=== PATIENT | female | born 1990 | race African-American/Black ===

== ENCOUNTER 2016-10-21 15:47 | Inpatient (IN) | payer OTHER ==
[~2016-10-21] VITALS: Ht 175.3 cm; Wt 109.4 kg
[2016-10-21 15:47] VITALS: BP 162/90; PULSE 88; RESP 18; TEMP 98.7; O2SAT 100
[~2016-10-21 15:47] MED LIST: AMOX875 PO; MMW SS; PRED20 PO
[2016-10-21 15:50] VITALS: BP 162/90; PULSE 94; RESP 18; O2SAT 100
--- NOTE | 2016-10-21 16:05 | PD ---
HPI . possible seizure earlier today Chief Complaint: Seizure Time Seen by Provider: 16:05 Travel History International Travel<30 days: No Contact w/Intl Traveler<30days: No Traveled to known affect area: No History of Present Illness HPI 26-year-old female with history of sickle cell trait, chronically muffled voice and hypertension no longer taking medications due to weight loss and diet control here after having a seizure while at work. Patient says she was working and all of a sudden started to gaze off into space, after that she does not recall any events other than leaning forward on the [employer] register. Her coworkers told her that she lost consciousness and was placed on the floor for about 5 minutes. Per EMS coworkers report convulsions. Patient says she then woke up and decided that she really had to use the bathroom and ran there. Apparently there was some confusion and fire rescue felt as though the patient was hiding in the bathroom. She tells me that she does not have a seizure disorder. She does have bite irby on her tongue. She denies any loss of bowel or bladder functions. She has no specific complaints. She denies any weakness or pain. She denies any nausea, chest pain, fever, chills, abdominal pain, diarrhea or headache. Her entire family is at bedside. They confirm that her voice is muffled as usual. Her significant other is also at bedside and reports that her girlfriend is back to her normal state. PFSH Past Medical History Diminished Hearing: No Hypertension: Yes (PT STATES SHE WAS PREVIOUSLY ON MEDICATION, BUT WAS TOLD TO STOP) Tetanus Vaccination: < 5 Years Influenza Vaccination: Yes ?: Not LMP: 10/19/16 : 0 Para: 0 Miscarriage: 0 : 0 Past Surgical History Surgical History: No Previous Surgery Social History Alcohol Use: Yes (RARELY) Tobacco Use: No Substance Use: Yes (OCCASIONAL MARIJUANA ) Allergies-Medications (Allergen,Severity, Reaction): Coded Allergies: No Known Allergies (Verified , 10/21/16) Reported Meds & Prescriptions Reported Meds & Active Scripts Active Review of Systems General / Constitutional: No: Fever Eyes: No: Visual changes HENT: No: Headaches Cardiovascular: No: Chest Pain or Discomfort Respiratory: No: Shortness of Breath Gastrointestinal: No: Abdominal Pain Genitourinary: No: Dysuria Musculoskeletal: No: Pain Skin: No Rash Neurologic: No: Weakness Psychiatric: No: Depression Endocrine: No: Polydipsia Hematologic/Lymphatic: No: Easy Bruising Physical Exam Narrative GENERAL: AAO x 3, no acute distress, Well-nourished, well-developed patient. SKIN: Warm and dry. No visible rashes or bruising. HEAD: Normocephalic and atraumatic. EYES: No scleral icterus. No injection or drainage. EOM intact, PERRLA ENT: No nasal drainage noted. Mucous membranes pink. Airway patent. ++ bite irby on left side of tongue. NECK: Supple, trachea midline. No JVD. CARDIOVASCULAR: Regular rate and rhythm without murmurs, gallops, or rubs. RESPIRATORY: Breath sounds equal bilaterally. No accessory muscle use. No rhonchi or rales. GASTROINTESTINAL: Abdomen soft, non-tender, nondistended. EXTREMITIES: No cyanosis or edema. BACK: Nontender without obvious deformity. No CVA tenderness. PSYCH: AAO x 3, normal affect. Data Data Last Documented VS Vital Signs Date Time Temp Pulse Resp B/P Pulse Ox O2 Delivery O2 Flow Rate FiO2 10/21/16 15:50 94 18 162/90 100 Room Air 10/21/16 15:47 98.7 Orders Complete Blood Count With Diff (10/21/16 16:15) Drug Screen, Random Urine (10/21/16 16:15) Electrocardiogram (10/21/16 ) Ct Brain W/O Iv Contrast(Rout) (10/21/16 ) Blood Glucose (10/21/16 16:15) Ecg Monitoring (10/21/16 16:15) Iv Access Insert/Monitor (10/21/16 16:15) Oximetry (10/21/16 16:15) Comprehensive Metabolic Panel (10/21/16 16:15) Sodium Chloride 0.9% Flush (Ns Flush) (10/21/16 16:15) Urinalysis - C+S If Indicated (10/21/16 16:15) Ed Urine Pregnancytest Poc (10/21/16 16:31) Levetiracetam 1000 Mg Inj (Keppra 1000 M (10/21/16 17:45) Levetiracetam (Keppra) (10/21/16 21:00) Mri Brain W&W/O Contrast (10/21/16 ) Consult Neurology (10/21/16 ) Labs Laboratory Tests Test 10/21/16 16:40 White Blood Count 5.3 TH/MM3 Red Blood Count 4.18 MIL/MM3 Hemoglobin 11.8 GM/DL Hematocrit 34.5 % Mean Corpuscular Volume 82.4 FL Mean Corpuscular Hemoglobin 28.1 PG Mean Corpuscular Hemoglobin 34.1 % Concent Red Cell Distribution Width 13.6 % Platelet Count 289 TH/MM3 Mean Platelet Volume 8.5 FL Neutrophils (%) (Auto) 64.9 % Lymphocytes (%) (Auto) 25.5 % Monocytes (%) (Auto) 7.8 % Eosinophils (%) (Auto) 1.3 % Basophils (%) (Auto) 0.5 % Neutrophils # (Auto) 3.5 TH/MM3 Lymphocytes # (Auto) 1.4 TH/MM3 Monocytes # (Auto) 0.4 TH/MM3 Eosinophils # (Auto) 0.1 TH/MM3 Basophils # (Auto) 0.0 TH/MM3 CBC Comment DIFF FINAL Differential Comment Urine Color LIGHT-YELLOW Urine Turbidity CLEAR Urine pH 6.0 Urine Specific [place] 1.009 Urine Protein NEG mg/dL Urine Glucose (UA) NEG mg/dL Urine Ketones NEG mg/dL Urine Occult Blood NEG Urine Nitrite NEG Urine Bilirubin NEG Urine Urobilinogen LESS THAN 2.0 MG/DL Urine Leukocyte Esterase NEG Urine RBC LESS THAN 1 /hpf Urine WBC LESS THAN 1 /hpf Urine Squamous Epithelial <1 /hpf Cells Microscopic Urinalysis Comment CULT NOT INDICATED Sodium Level 141 MEQ/L Potassium Level 3.5 MEQ/L Chloride Level 108 MEQ/L Carbon Dioxide Level 25.5 MEQ/L Anion Gap 8 MEQ/L Blood Urea Nitrogen 10 MG/DL Creatinine 1.05 MG/DL Estimat Glomerular Filtration 77 ML/MIN Rate Random Glucose 66 MG/DL Calcium Level 8.8 MG/DL Total Bilirubin 0.2 MG/DL Aspartate Amino Transf 14 U/L (AST/SGOT) Alanine Aminotransferase 20 U/L (ALT/SGPT) Alkaline Phosphatase 72 U/L Total Protein 7.8 GM/DL Albumin 4.1 GM/DL Urine Opiates Screen NEG Urine Barbiturates Screen NEG Urine Amphetamines Screen NEG Urine Benzodiazepines Screen NEG Urine Cocaine Screen NEG Urine Cannabinoids Screen POS MDM Medical Decision Making Medical Screen Exam Complete: Yes Emergency Medical Condition: Yes Medical Record Reviewed: Yes Differential Diagnosis new onset seizures, syncope, less likely brain lesion Narrative Course 26-year-old female with history of sickle cell trait, chronically muffled voice and hypertension no longer taking medications due to weight loss and diet control here after having a seizure while at work. Patient says she was working and all of a sudden started to gaze off into space, after that she does not recall any events other than leaning forward on the [employer] register. Her coworkers told her that she lost consciousness and was placed on the floor for about 5 minutes. Per EMS coworkers report convulsions. Patient says she then woke up and decided that she really had to use the bathroom and ran there. Apparently there was some confusion and fire rescue felt as though the patient was hiding in the bathroom. She tells me that she does not have a seizure disorder. She does have bite irby on her tongue. She denies any loss of bowel or bladder functions. She has no specific complaints. She denies any weakness or pain. She denies any nausea, chest pain, fever, chills, abdominal pain, diarrhea or headache. Her entire family is at bedside. They confirm that her voice is muffled as usual. Her significant other is also at bedside and reports that her girlfriend is back to her normal state. Patient seen and examined. Case discussed with Dr. Means. Labs, EKG, UA, tox screen and CT scan of the brain ordered. We'll consult neurology. Hypoglycemia: patient given juice and crackers Laboratory Tests Test 10/21/16 16:40 White Blood Count 5.3 TH/MM3 Red Blood Count 4.18 MIL/MM3 Hemoglobin 11.8 GM/DL Hematocrit 34.5 % Mean Corpuscular Volume 82.4 FL Mean Corpuscular Hemoglobin 28.1 PG Mean Corpuscular Hemoglobin 34.1 % Concent Red Cell Distribution Width 13.6 % Platelet Count 289 TH/MM3 Mean Platelet Volume 8.5 FL Neutrophils (%) (Auto) 64.9 % Lymphocytes (%) (Auto) 25.5 % Monocytes (%) (Auto) 7.8 % Eosinophils (%) (Auto) 1.3 % Basophils (%) (Auto) 0.5 % Neutrophils # (Auto) 3.5 TH/MM3 Lymphocytes # (Auto) 1.4 TH/MM3 Monocytes # (Auto) 0.4 TH/MM3 Eosinophils # (Auto) 0.1 TH/MM3 Basophils # (Auto) 0.0 TH/MM3 CBC Comment DIFF FINAL Differential Comment Urine Color LIGHT-YELLOW Urine Turbidity CLEAR Urine pH 6.0 Urine Specific [place] 1.009 Urine Protein NEG mg/dL Urine Glucose (UA) NEG mg/dL Urine Ketones NEG mg/dL Urine Occult Blood NEG Urine Nitrite NEG Urine Bilirubin NEG Urine Urobilinogen LESS THAN 2.0 MG/DL Urine Leukocyte Esterase NEG Urine RBC LESS THAN 1 /hpf Urine WBC LESS THAN 1 /hpf Urine Squamous Epithelial <1 /hpf Cells Microscopic Urinalysis Comment CULT NOT INDICATED Sodium Level 141 MEQ/L Potassium Level 3.5 MEQ/L Chloride Level 108 MEQ/L Carbon Dioxide Level 25.5 MEQ/L Anion Gap 8 MEQ/L Blood Urea Nitrogen 10 MG/DL Creatinine 1.05 MG/DL Estimat Glomerular Filtration 77 ML/MIN Rate Random Glucose 66 MG/DL Calcium Level 8.8 MG/DL Total Bilirubin 0.2 MG/DL Aspartate Amino Transf 14 U/L (AST/SGOT) Alanine Aminotransferase 20 U/L (ALT/SGPT) Alkaline Phosphatase 72 U/L Total Protein 7.8 GM/DL Albumin 4.1 GM/DL Urine Opiates Screen NEG Urine Barbiturates Screen NEG Urine Amphetamines Screen NEG Urine Benzodiazepines Screen NEG Urine Cocaine Screen NEG Urine Cannabinoids Screen POS CT brain negative. Discussed with Neurology: recommend Keppra 1000mg iv and then keppra 1000mg BID , also requested Brain MRI and EEG Discussed with patient that we will be keeping her overnight and having her see neurology. ? NEW ONSET SEIZURE VS. SYNCOPE She was understanding and in agreement. Discussed with Dr. Purcell: patient will be admitted for observation. Patient verbalized understanding of instructions, questions were answered, and thanked me for their care. I advised them if their condition worsens, please return to the nearest emergency room for further care. Diagnosis Primary Impression: New onset seizure Admitting Information Admitting Physician Requests: Admit Scripts No Active Prescriptions or Reported Meds Condition: Stable Torie Murphy Oct 21, 2016 16:05
[2016-10-21] MEDS ORDERED: SODIUM CHLORIDE 0.9% FLUSH 5 ML FLUSH IVF PRN ×2 (16:15→18:00)
[2016-10-21 16:52] LABS: BLOOD, URINE NEG (NEG); GLUCOSE,URINE NEG (NEG); KETONE, URINE NEG (NEG); NITRITE,URINE NEG (NEG); SQUAMOUS EPITHELIAL CELL URINE <1 /hpf (0-5); URINE COLOR LIGHT-YELLOW (YELLW/STRAW)
[2016-10-21 16:53] LABS: AUTOMATED NEUTROPHIL # 3.5 TH/MM3 (1.8-7.7); BASOPHIL % 0.5 % (0.0-2.0); EOSINOPHIL # 0.1 TH/MM3 (0-0.4); EOSINOPHIL % 1.3 % (0.0-4.0); HEMATOCRIT 34.5 % (35.0-46.0); HEMO FLAGS DIFF FINAL; LYMPH % 25.5 % (9.0-44.0); LYMPHOCYTE # 1.4 TH/MM3 (1.0-4.8); MEAN CELL VOLUME 82.4 FL (80.0-100.0); MEAN CORPUSCULAR HEMOGLOBIN 28.1 PG (27.0-34.0); MEAN CORPUSCULAR HGB CONC 34.1 % (32.0-36.0); MONO % 7.8 % (0.0-8.0); NEUT % 64.9 % (16.0-70.0); PLATELET COUNT 289 TH/MM3 (150-450); RED BLOOD COUNT 4.18 MIL/MM3 (4.00-5.30); RED CELL DISTRIBUTION WIDTH 13.6 % (11.6-17.2); WHITE BLOOD COUNT 5.3 TH/MM3 (4.0-11.0)
[2016-10-21 16:55] LABS: COMMENT (UR) CULT NOT INDICATED; CULTURE IF INDICATED CULT NOT INDICATED
[2016-10-21 16:59] LABS: AMPHETAMINE, URINE NEG (NEG); BARBITURATES, URINE NEG (NEG); COCAINE, URINE NEG (NEG)
[2016-10-21 17:21] LABS: ALT (GPT) 20 U/L (10-53); ANION GAP 8 MEQ/L (5-15); AST (GOT) 14 U/L (15-37); BICARBONATE 25.5 MEQ/L (21.0-32.0); BLOOD UREA NITROGEN 10 MG/DL (7-18); CHLORIDE 108 MEQ/L (98-107); GLOMERULAR FILTRATION RATE 77 ML/MIN (>89); POTASSIUM 3.5 MEQ/L (3.5-5.1); SODIUM (NA) 141 MEQ/L (136-145)
[2016-10-21 17:24] LABS: ALKALINE PHOSPHATASE 72 U/L (45-117); TOTAL BILIRUBIN ADULT 0.2 MG/DL (0.2-1.0)
--- NOTE | 2016-10-21 17:29 | RADRPT ---
EXAM DATE/TIME: 10/21/2016 17:11 [facility] COMPARISON: No previous studies available for comparison. INDICATIONS : Syncope. RADIATION DOSE: 40.33 CTDIvol (mGy) MEDICAL HISTORY : Hypertension. SURGICAL HISTORY : None. ENCOUNTER: Initial ACUITY: 1 day PAIN SCALE: 0/10 LOCATION: cranial TECHNIQUE: Multiple contiguous axial images were obtained of the head. Using automated exposure control and adjustment of the mA and/or kV according to patient size, radiation dose was kept as low as reasonably achievable to obtain optimal diagnostic quality images. FINDINGS: CEREBRUM: The ventricles are normal for age. No evidence of midline shift, mass lesion, hemorrha ge or acute infarction. No extra-axial fluid collections are seen. POSTERIOR FOSSA: The cerebellum and brainstem are intact. The 4th ventricle is midline. The cer ebellopontine angle is unremarkable. EXTRACRANIAL: The visualized portion of the orbits is intact. SKULL: The calvaria is intact. No evidence of skull fracture. CONCLUSION: Negative for an acute process. Brian Michelle MD FACR on October 21, 2016 at 17:26 Board Certified Radiologist. This report was verified electronically.
[2016-10-21] MEDS ORDERED: levETIRAcetam 1000 MG INJ 100 ML IV ONE (17:45)
[2016-10-21] MEDS ORDERED: SODIUM CHLOR 0.9% 1000 ML INJ 1,000 ML IV SCH (18:00)
[2016-10-21 18:25] VITALS: BP 154/97; PULSE 78; RESP 16; O2SAT 100
[2016-10-21] MEDS: ACETAMINOPHEN 325 MG TAB PO PRN (19:10)
[2016-10-21 19:41] VITALS: BP 162/95; PULSE 73; RESP 20; O2SAT 100
--- NOTE | 2016-10-21 19:49 | HHI.HP ---
[facility] Service [facility] Primary Care Physician No Primary Care Physician Admission Diagnosis NEW ONSET SEIZURE ? 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 Patient woke up with EMS in the room, they tried to put a neck brace. She spontaneously awakened and got up and walk per family. On exam with bite irby on her tongue. No neck rigidity. no recent URI symptoms. No diarrhea Patient works at [employer] and has been working long hours because of the races. Review of Systems Constitutional: DENIES: Fever, Weight loss, Chills, Change in appetite Eyes: DENIES: Blurred vision, Double Vision Ears, nose, mouth, throat: DENIES: Tinnitus, Ear Pain, Epistaxis, Odynophagia Respiratory: DENIES: Cough, Hemoptysis, Sputum production, Shortness of breath Cardiovascular: DENIES: Chest pain, Palpitations, Dyspnea on Exertion, Lower Extremity Edema, Orthopnea Gastrointestinal: DENIES: Black stools, Bloody stools, Difficulty Swallowing, Anorexia Genitourinary: DENIES: Urgency, Hematuria, Vaginal discharge Musculoskeletal: DENIES: Joint pain, Stiffness Integumentary: DENIES: Pruritus Hematologic/lymphatic: DENIES: Bruising Immunologic/allergic: DENIES: Urticaria Neurologic: DENIES: Headache, Speech Problems, Tremor Psychiatric: DENIES: Suicidal Ideation, Homicidal Ideation Past Family Social History Past Medical History History of hypertension a year ago and was placed on medication that she took for a year and discontinued it herself Past Surgical History none Reported Medications none Allergies: Coded Allergies: No Known Allergies (Verified , 10/21/16) Family History Positive family history of hypertension next 9 history of sickle cell disease in the family Diabetes mellitus type 2 Social History Very occasional marijuana use No history of smoking cigarettes Very rare alcohol use Physical Exam Vital Signs Vital Signs Date Time Temp Pulse Resp B/P Pulse Ox O2 Delivery O2 Flow Rate FiO2 10/21/16 18:25 78 16 154/97 100 Room Air 10/21/16 15:50 94 18 162/90 100 Room Air 10/21/16 15:50 88 18 100 Room Air 10/21/16 15:47 98.7 88 18 162/90 100 Physical Exam GENERAL: This is a well-nourished, well-developed patient, in no apparent distress. SKIN: No rashes, ecchymoses or lesions. Cool and dry. HEAD: Atraumatic. Normocephalic. No temporal or scalp tenderness. EYES: Pupils equal round and reactive. Extraocular motions intact. No scleral icterus. No injection or drainage. ENT: Nose without bleeding, purulent drainage or septal hematoma. Throat without erythema, tonsillar hypertrophy or exudate. Uvula midline. Airway patent. Bite irby noted on both, sides of the tongue NECK: Trachea midline. No JVD or lymphadenopathy. Supple, nontender, no meningeal signs. CARDIOVASCULAR: Regular rate and rhythm without murmurs, gallops, or rubs. RESPIRATORY: Clear to auscultation. Breath sounds equal bilaterally. No wheezes , rales, or rhonchi. GASTROINTESTINAL: Abdomen soft, non-tender, nondistended. . No guarding. MUSCULOSKELETAL: Extremities without clubbing, cyanosis, or edema. No joint tenderness, effusion, or edema noted. No calf tenderness. Negative Homans sign bilaterally. NEUROLOGICAL: Awake and alert. Cranial nerves II through XII intact. Motor and sensory grossly within normal limits. Five out of 5 muscle strength in all muscle groups. Normal speech. Laboratory Laboratory Tests Test 10/21/16 16:40 White Blood Count 5.3 Red Blood Count 4.18 Hemoglobin 11.8 Hematocrit 34.5 Mean Corpuscular Volume 82.4 Mean Corpuscular Hemoglobin 28.1 Mean Corpuscular Hemoglobin 34.1 Concent Red Cell Distribution Width 13.6 Platelet Count 289 Mean Platelet Volume 8.5 Neutrophils (%) (Auto) 64.9 Lymphocytes (%) (Auto) 25.5 Monocytes (%) (Auto) 7.8 Eosinophils (%) (Auto) 1.3 Basophils (%) (Auto) 0.5 Neutrophils # (Auto) 3.5 Lymphocytes # (Auto) 1.4 Monocytes # (Auto) 0.4 Eosinophils # (Auto) 0.1 Basophils # (Auto) 0.0 CBC Comment DIFF FINAL Differential Comment Urine Color LIGHT-YELLOW Urine Turbidity CLEAR Urine pH 6.0 Urine Specific [place] 1.009 Urine Protein NEG Urine Glucose (UA) NEG Urine Ketones NEG Urine Occult Blood NEG Urine Nitrite NEG Urine Bilirubin NEG Urine Urobilinogen LESS THAN 2.0 Urine Leukocyte Esterase NEG Urine RBC LESS THAN 1 Urine WBC LESS THAN 1 Urine Squamous Epithelial <1 Cells Microscopic Urinalysis Comment CULT NOT INDICATED Sodium Level 141 Potassium Level 3.5 Chloride Level 108 Carbon Dioxide Level 25.5 Anion Gap 8 Blood Urea Nitrogen 10 Creatinine 1.05 Estimat Glomerular Filtration 77 Rate Random Glucose 66 Calcium Level 8.8 Total Bilirubin 0.2 Aspartate Amino Transf 14 (AST/SGOT) Alanine Aminotransferase 20 (ALT/SGPT) Alkaline Phosphatase 72 Total Protein 7.8 Albumin 4.1 Urine Opiates Screen NEG Urine Barbiturates Screen NEG Urine Amphetamines Screen NEG Urine Benzodiazepines Screen NEG Urine Cocaine Screen NEG Urine Cannabinoids Screen POS Result Diagram: 10/21/16 1640 10/21/16 1640 Imaging Last Impressions Head CT 10/21/16 0000 Signed Impressions: Service Date/Time: Friday, October 21, 2016 17:11 - CONCLUSION: Negative for an acute process. Brian Michelle MD FACR Assessment and Plan Assessment and Plan 26-year-old right handed female presenting with New onset seizure EEG ordered head CT negative. Will get an MRI/ Patient given 1 g IV of Keppra then q 12 Neurology consulted neurochecks q shift Hypertension mild. Patient with positive history of hypertension - off meds for about a year now. We'll give clonidine when necessary for now Marijuana use. Patient counseled Counselled on no driving x 6 months seziure free Adequate sleep. Avoid [facility] Discussed Condition With Patient and family at bedside Delisa Purcell MD Oct 21, 2016 19:49 Counselled on no driving x 6 months seziure free Adequate sleep. Avoid [facility] Discussed Condition With Patient and family at bedside Delisa Purcell MD Oct 21, 2016 19:49
[2016-10-21] MEDS ORDERED: cloNIDine HCL 0.1 MG TAB PO PRN (20:00)
--- NOTE | 2016-10-21 20:22 | RADRPT ---
EXAM DATE/TIME: 10/21/2016 19:44 [facility] COMPARISON: No previous studies available for comparison. INDICATIONS : Seizures. MEDICAL HISTORY : None. SURGICAL HISTORY : None. ENCOUNTER: Initial ACUITY: 1 day PAIN SCORE: 0/10 LOCATION: cranial TECHNIQUE: Multiplanar, multisequence MRI of the brain was performed without contrast. FINDINGS: CEREBRUM: The ventricles are normal for age. No evidence of midline shift, mass lesion, hemorrhage or acute in farction. No extraaxial fluid collections are seen. The pituitary gland and suprasellar cistern are normal in configuration. WHITE MATTER: No significant signal abnormalities are seen in the white matter. POSTERIOR FOSSA: The cerebellum and brainstem are intact. The 4th ventricle is midline. The cerebellopontine angle is unremarkable. The cerebellar tonsils are normal in position. DIFFUSION IMAGING: No focal areas of restricted diffusion are seen. No evidence of acute infarction. EXTRACRANIAL: The visualized portions of the orbits and paranasal sinuses are unremarkable. CONCLUSION: Normal examination. Luiz Pacheco MD on October 21, 2016 at 20:19 Board Certified Radiologist. This report was verified electronically.
[2016-10-21 20:32] VITALS: BP 166/93; PULSE 73; RESP 18; TEMP 98.4; O2SAT 100
[2016-10-21] MEDS: SODIUM CHLORIDE 0.9% FLUSH 5 ML FLUSH IVF SCH (21:59)
[2016-10-21] MEDS: levETIRAcetam 500 MG TAB PO SCH (21:59)
[2016-10-21] MEDS: POTASSIUM CHLORIDE INJ 10 MEQ in DEXT 5%-NACL 0.9% 1000 ML INJ 1,000 ML IV SCH (22:06)
[2016-10-21 23:38] VITALS: O2SAT 98
[2016-10-22] VITALS (8 sets, daily range): BP systolic 138–150; BP diastolic 73–96; PULSE 52–78; RESP 18–20; TEMP 98.1–98.7; O2SAT 98–100
[2016-10-22] MEDS: ACETAMINOPHEN 325 MG TAB PO PRN ×3 (04:23→16:54)
[2016-10-22 08:25] LABS: BICARBONATE 25.6 MEQ/L (21.0-32.0); HDL CHOLESTEROL 33.8 MG/DL (40.0-60.0); POTASSIUM 3.6 MEQ/L (3.5-5.1)
[2016-10-22] MEDS: levETIRAcetam 500 MG TAB PO SCH ×2 (08:52→21:47)
[2016-10-22] MEDS: SODIUM CHLORIDE 0.9% FLUSH 5 ML FLUSH IVF SCH ×2 (08:55→21:49)
--- NOTE | 2016-10-22 11:08 | HHI.PR ---
Subjective Remarks no complains no dizziness,nausea or vomiting no "spells" Objective Vitals Vital Signs Date Time Temp Pulse Resp B/P Pulse Ox O2 Delivery O2 Flow Rate FiO2 10/22/16 10:12 66 10/22/16 08:21 98 21 10/22/16 08:00 98.1 56 18 147/85 100 10/22/16 04:00 98.4 64 18 138/80 98 10/22/16 00:00 98.4 74 18 138/80 98 10/21/16 23:38 98 21 10/21/16 20:32 98.4 73 18 166/93 100 10/21/16 20:10 18 10/21/16 19:41 73 20 162/95 100 10/21/16 18:25 78 16 154/97 100 Room Air 10/21/16 15:50 94 18 162/90 100 Room Air 10/21/16 15:50 88 18 100 Room Air 10/21/16 15:47 98.7 88 18 162/90 100 I/O 10/21/16 10/21/16 10/21/16 10/22/16 10/22/16 10/22/16 07:00 15:00 23:00 07:00 15:00 23:00 Intake Total 360 ml 240 ml Balance 360 ml 240 ml Intake Oral 360 ml 240 ml # Voids 1 2 Result Diagram: 10/21/16 1640 10/22/16 0710 Imaging Last Impressions Head CT 10/21/16 0000 Signed Impressions: Service Date/Time: Friday, October 21, 2016 17:11 - CONCLUSION: Negative for an acute process. Brian Michelle MD FACR Brain MRI 10/21/16 0000 Signed Impressions: Service Date/Time: Friday, October 21, 2016 19:44 - CONCLUSION: Normal examination. Luiz Pacheco MD Objective Remarks awake and alert, oriented x 3 anicteric no bruit lungs clear regular rhythm abdomen soft, nontender extremities no edema motor 5/5 gait steady A/P Problem List: (1) New onset seizure ICD Code: R56.9 Status: Acute Assessment and Plan 26-year-old right handed female presenting with New onset seizure EEG pending MRI/CT brain negative on keppra 1 gm q 12 Neurology consulted neurochecks q shift Hypertension mild. Patient with positive history of hypertension - off meds for about a year now. start amlodipine 2.5 mg po daily' Marijuana use. Patient counseled Counselled on no driving x 6 months seziure free Adequate sleep. Avoid [facility] Delisa Purcell MD Oct 22, 2016 11:08
[2016-10-22] MEDS ORDERED: PILL SPLITTER OTHER PRN (11:15)
[2016-10-22] MEDS: amLODIPine BESYLATE 5 MG TAB PO SCH (11:46)
[2016-10-22] MEDS: POTASSIUM CHLORIDE INJ 10 MEQ in DEXT 5%-NACL 0.9% 1000 ML INJ 1,000 ML IV SCH (11:47)
--- NOTE | 2016-10-22 16:25 | MG ---
cc: GERARDO GRACE M.D. Lab No: [id number] Date: 10/22/2016 Age: Sex: F Race: Cc. TECHNIQUE 17 channel EEG. DESCRIPTION The background rhythm reveals symmetrical alpha rhythm frequency is 8-9 Hz amplitude is 20-30 microvolts. During drowsiness there is some slowing in the theta range. Sleep activity is identified. There are some vertex sharp waves and sleep spindles. I do not see any epileptiform discharges. No lateralizing features are identified. Photic results in a normal driving response. INTERPRETATION Normal EEG. MD QIAN Shah/christian /2:47 PM /4:24 PM
--- NOTE | 2016-10-22 22:17 | MB ---
cc: ELOINA QUIROGA MD DATE OF CONSULTATION 10/22/2016 REASON FOR CONSULTATION New onset seizure / syncope / post syncopal convulsions. HISTORY OF THE PRESENT ILLNESS Ms. Cabral is a 26-year-old -[place] right-handed female with a past medical history of hypertension currently on no medications. She states that she has worked during the weekend more than 50 hours without any breaks, and as a matter of fact she has been over working in two jobs for a couple of weeks recently with non organized meals and not staying well hydrated and mild some kind of sleep deprivation. The patient states that one of the co-workers noticed that she was staring in space, observed to be leaning forward and then they could catch her before she was on the floor and was witnessed to go into generalized tonic clonic convulsions where she bit her tongue. She denies loss of bowel or bladder control or postictal confusional place. The patient denies any recent headache, fever, change in lifestyle or habits, recent medication or herbal medication. Patient denies any premonitory symptoms, specifically racing heart, lightheadedness, profuse sweating. The mother and the rest of the family at the bedside denied that she has febrile convulsions, jaundice at , history of head trauma, delayed milestones during schooling or any family history of epilepsy. REVIEW OF SYSTEMS A 12 point review of systems is negative except for what is in the history of present illness. PAST MEDICAL HISTORY Hypertension. PAST SURGICAL HISTORY Noncontributory. MEDICATIONS None. ALLERGIES NONE. FAMILY HISTORY Hypertension, sickle-cell disease and diabetes mellitus. SOCIAL HISTORY Occasional marijuana use. No history of smoking and rare alcohol use. PHYSICAL EXAMINATION GENERAL: Awake, alert, well-nourished but in no acute distress. Pleasant. A good historian. HEENT: Atraumatic, normocephalic. Brown discoloration of the sclerae of the eyes since . Intact hearing. Intact vision. NECK: Trachea is midline. No sign of meningeal irritation. CARDIOVASCULAR: Regular rate and rhythm. LUNGS: Clear to auscultation. No wheezing. MUSCULOSKELETAL: Extremities with no clubbing and no cyanosis. No edema. Moves all extremities equally. NEUROLOGICAL: Awake and alert. Oriented to time, person and place. No dysarthria. No dysphagia. Intact memory. Cranial nerves II through XII are grossly intact. Motor examination 5/5 bilateral and symmetrical. No abnormal movement. Cerebellar function [id number] and [id number] are grossly intact. Reflexes 2+ bilateral and symmetrical. Plantars are bilateral downgoing. Stance is normal. Gait is normal. Romberg sign is negative. No ataxia. PSYCHOLOGIC: Normal mood and behavior. No suicidal ideation. LABORATORY DATA White blood cell count 5.3, hemoglobin 11.8, MCV 82.4, platelet count 289. Sodium 141, potassium 3.5, anion gap 8. BUN 10, creatinine 1.05. Calcium 8.8. AST 14, ALT 20. Urine tox positive for cannabinoids. IMAGING Diagnostic imaging: -Head CT scan negative for an acute intracranial process. - Brain MRI normal examination. - EEG was reported as normal with no ictal activity. IMPRESSION 1. Possible seizure. Likely etiology is provoked by sleep deprivation, excessive fatigue. 2. Convulsive syncope. - In light of the normal nonfocal neurological examination and unremarkable brain imaging and EEG studies, and given the spell is provoked, hence there is no indication to start the patient on anticonvulsants at this time. However, I explained to the patient and the family the importance of keeping well hydrated, sleep hygiene, timed meals and I recommend a followup as an outpatient in six weeks for re-evaluation. PLAN - The patient is stable from a neurology standpoint with a nonfocal neurological examination, unremarkable neurological imaging and electrodiagnostic test. - AEDs are not warranted at this time. - Follow up as an outpatient in six weeks. Thank you for the opportunity to participate in the care of your patient. MD DARYL Barry/PATY /9:22 PM /9:34 PM DONTE
[2016-10-23 00:21] VITALS: BP 150/76; PULSE 60; RESP 18; TEMP 98.6; O2SAT 100
[2016-10-23 04:21] VITALS: BP 148/78; PULSE 64; RESP 18; TEMP 98.6; O2SAT 100
[2016-10-23 08:12] VITALS: BP 168/96; PULSE 68; RESP 18; TEMP 93.9; O2SAT 96
[2016-10-23] MEDS: ACETAMINOPHEN 325 MG TAB PO PRN (08:54)
[2016-10-23] MEDS: levETIRAcetam 500 MG TAB PO SCH (08:54)
[2016-10-23] MEDS: amLODIPine BESYLATE 5 MG TAB PO SCH (08:55)
[2016-10-23] MEDS: SODIUM CHLORIDE 0.9% FLUSH 5 ML FLUSH IVF SCH (08:55)
--- NOTE | 2016-10-23 10:32 | HHI.PR ---
Subjective Remarks no further episodes no headaches, nausea , no weakness Objective Vitals Vital Signs Date Time Temp Pulse Resp B/P Pulse Ox O2 Delivery O2 Flow Rate FiO2 10/23/16 08:12 93.9 68 18 168/96 96 10/23/16 04:21 98.6 64 18 148/78 100 10/23/16 00:21 98.6 60 18 150/76 100 10/22/16 20:00 98.6 78 18 146/96 100 10/22/16 17:54 20 10/22/16 16:00 98.7 58 20 149/73 99 10/22/16 12:00 98.1 52 18 150/92 100 I/O 10/22/16 10/22/16 10/22/16 10/23/16 10/23/16 10/23/16 07:00 15:00 23:00 07:00 15:00 23:00 Intake Total 240 ml 360 ml 1647 ml 240 ml Balance 240 ml 360 ml 1647 ml 240 ml Intake Oral 240 ml 360 ml 480 ml 240 ml IV Total 1167 ml # Voids 2 2 3 2 # Bowel Movements 2 Result Diagram: 10/21/16 1640 10/22/16 0710 Imaging Last Impressions Head CT 10/21/16 0000 Signed Impressions: Service Date/Time: Friday, October 21, 2016 17:11 - CONCLUSION: Negative for an acute process. Brian Michelle MD FACR Brain MRI 10/21/16 0000 Signed Impressions: Service Date/Time: Friday, October 21, 2016 19:44 - CONCLUSION: Normal examination. Luiz Pacheco MD Objective Remarks awake and alert, oriented x 3 anicteric, tongue bite wound healed no bruit lungs clear regular rhythm abdomen soft, nontender extremities no edema motor 5/5 gait steady A/P Problem List: (1) New onset seizure ICD Code: R56.9 Status: Acute Assessment and Plan 26-year-old right handed female presenting with New onset seizure EEG normal MRI/CT brain negative on keppra 1 gm q 12- DC. appreciate neurology recommendation will not start AED. advise on adequate sleep. no driving x 6 months, no marijuana. avoid heights Hypertension mild. Patient with positive history of hypertension - off meds for about a year now. continue amlodipine 2.5 mg po daily' OP ff up with a PCP- she will set up with one heart healthy diet Marijuana use. Patient counseled Counselled on no driving x 6 months seziure free Adequate sleep. Avoid heights DC today Activity as tolerated Diet- heart healthy Delisa Purcell MD Oct 23, 2016 10:32
[2016-10-23] MEDS ORDERED: AMLO5 PO (10:36)
--- NOTE | 2016-10-23 10:39 | HHI.DS ---
Discharge Summary Admission Date Oct 21, 2016 at 18:03 Discharge Date: Oct 23, 2016 Admitting Diagnosis NEW ONSET SEIZURE ? SYNCOPE (1) New onset seizure ICD Code: R56.9 Diagnosis: Principal (2) HTN (hypertension) ICD Code: I10 Diagnosis: Secondary Procedures none Brief History - From Admission Patient is a 26 years old right handed female with history of hypertension - not on any medications, is a chief seo manager at [employer] while at work today was noted by co workers to be staring in space, was observed to lean forward and co workers rapidly laid her down on the floor and while down on the floor was noted to go into generalized tonic clonic for about 5 minutes. Patient woke up with EMS in the room, they tried to put a neck brace. She spontaneously awakened and got up and walk per family. On exam with bite irby on her tongue. No neck rigidity. no recent URI symptoms. No diarrhea Patient works at [employer] and has been working long hours because of the races. CBC/BMP: 10/21/16 1640 10/22/16 0710 Significant Findings Laboratory Tests Test 10/21/16 10/22/16 16:40 07:10 Hematocrit 34.5 % (35.0-46.0) Chloride Level 108 MEQ/L 110 MEQ/L (98-107) (98-107) Creatinine 1.05 MG/DL (0.50-1.00) Estimat Glomerular Filtration 77 ML/MIN (>89) 87 ML/MIN (>89) Rate Random Glucose 66 MG/DL (74-106) Aspartate Amino Transf 14 U/L (15-37) (AST/SGOT) Urine Cannabinoids Screen POS (NEG) Calcium Level 8.3 MG/DL (8.5-10.1) Cholesterol Level 115 MG/DL (120-200) HDL Cholesterol 33.8 MG/DL (40.0-60.0) Imaging Last Impressions Head CT 10/21/16 0000 Signed Impressions: Service Date/Time: Friday, October 21, 2016 17:11 - CONCLUSION: Negative for an acute process. Brian Michelle MD FACR Brain MRI 10/21/16 0000 Signed Impressions: Service Date/Time: Friday, October 21, 2016 19:44 - CONCLUSION: Normal examination. Luiz Pacheco MD PE at Discharge awake and alert, oriented x 3 anicteric, tongue bite wound healed no bruit lungs clear regular rhythm abdomen soft, nontender extremities no edema motor 5/5 gait steady Pt update on day of discharge awake and alert, no headaches no deficits gait steady BP stable Hospital Course 26-year-old right handed female presenting with New onset seizure EEG normal MRI/CT brain negative on keppra 1 gm q 12- DC. appreciate neurology recommendation will not start AED. advise on adequate sleep. no driving x 6 months, no marijuana. avoid heights Hypertension mild. Patient with positive history of hypertension - off meds for about a year now. continue amlodipine 2.5 mg po daily' OP ff up with a PCP- she will set up with one heart healthy diet Marijuana use. Patient counseled Counselled on no driving x 6 months seziure free Adequate sleep. Avoid heights DC today Activity as tolerated Diet- heart healthy Pt Condition on Discharge: Stable Discharge Disposition: Discharge Home Discharge Time: <= 30 minutes Discharge Instructions DIET: Follow Instructions for: Heart Healthy Diet Speech Therapy-Diet Recommends: Regular Activities you can perform: Weight Bearing as Altaf, See Additionl Instruction Other Activity Instructions: no driving for 6 months avoid heights adequate sleep- 8 hours Follow up Referrals: Neurology - 6 Weeks with Vilma Morse MD PCP Follow-up - 1 Week with PCP choice New Medications: Amlodipine (Norvasc) 5 Mg Tab 2.5 MG PO DAILY htn Days 30 TAB Delisa Purcell MD Oct 23, 2016 10:39
[2016-10-23] MEDS: POTASSIUM CHLORIDE INJ 10 MEQ in DEXT 5%-NACL 0.9% 1000 ML INJ 1,000 ML IV SCH (12:01)
--- NOTE | 2016-10-28 14:51 | EKG ---
Date Performed: 10/21/2016 Time Performed: 16:41:14 PTAGE: 26 years EKG: Sinus rhythm MODERATE VOLTAGE CRITERIA FOR LVH, CONSIDER NORMAL VARIANT BORDERLINE ECG Compared to prior tracing no significant change PREVIOUS TRACING : 12/10/2005 10.08 DOCTOR: Gallo Glass Interpretating Date/Time 10/28/2016 14:50:50
== END 2016-10-23 12:36 | disposition home or self-care (01) | DRG 101 ==
LOC: NEPC 15:47 → NEDA 18:02 → OBSVTOIN 18:03 → N05A 20:12
PROVIDERS: ADMIT Internal Medicine; ATTEND Internal Medicine
DX: R56.9 Unspecified convulsions (principal); I10 Essential (primary) hypertension; F12.90 Cannabis use, unspecified, uncomplicated; E16.2 Hypoglycemia, unspecified; Z72.820 Sleep deprivation; R53.83 Other fatigue; D57.3 Sickle-cell trait
CPT/HCPCS: 70450; 70551; 80048; 80053; 80061; 80307; 81001; 84703; 85025; 93005; 95819; J1953; J3480; J7030; J7042

== ENCOUNTER 2017-05-26 07:34 | Emergency (ER) | payer SELFPAY ==
[~2017-05-26] VITALS: Ht 177.8 cm; Wt 105.0 kg
[~2017-05-26 07:34] MED LIST changes: +AMLO5 PO; -AMOX875 PO; -MMW SS; -PRED20 PO
[2017-05-26 07:39] VITALS: BP 192/109; PULSE 110; RESP 12; TEMP 98.6; O2SAT 96
[2017-05-26 08:00] VITALS: BP 167/96; PULSE 96; RESP 19; O2SAT 100
--- NOTE | 2017-05-26 08:14 | PD ---
HPI Chief Complaint: Seizure Time Seen by Provider: 08:02 Travel History International Travel<30 days: No Contact w/Intl Traveler<30days: No Traveled to known affect area: No History of Present Illness HPI 27yo F with PMH of HTN presents to the ED with c/o possible seizure today. Pt was not really sleeping much last night because of a headache and took acetaminophen which resolved the headache. States that she was sleeping at around 6:45am, her girlfriend noticed that she was shaking generally and sleeping at the same time. Pt did not fall or hit her head. She did seemed a little confused after but now back to baseline. States it lasted about 3 minutes. Pt denies any fever, current headache, visual changes, chest pain, sob , n/v, abdominal pain, focal weakness or numbness. Pt was seen by Dr. Morse in for possible seizure and had negative CT brain, MRI brain and normal EEG. Pt was not started of AED because it was not warranted and impression was possible seizure provoked by sleep deprivation and fatigue. PFSH Past Medical History Cardiovascular Problems: Yes High Cholesterol: No Diminished Hearing: No Endocrine: No Genitourinary: No Hypertension: Yes (PT STATES SHE WAS PREVIOUSLY ON MEDICATION, BUT WAS TOLD TO STOP) Immune Disorder: No Musculoskeletal: No Neurologic: Yes Psychiatric: No Reproductive: No Respiratory: No Immunizations Current: Yes Migraines: Yes Seizures: Yes (NEW ONSET) Tetanus Vaccination: Unknown ?: Not LMP: 05/17/17 : 0 Para: 0 Miscarriage: 0 : 0 Past Surgical History Surgical History: No Previous Surgery Other Surgery: Yes Social History Alcohol Use: Yes (RARELY) Tobacco Use: No Substance Use: Yes (OCCASIONAL MARIJUANA ) Allergies-Medications (Allergen,Severity, Reaction): Coded Allergies: No Known Allergies (Verified , 05/26/17) Reported Meds & Prescriptions Reported Meds & Active Scripts Active Norvasc (Amlodipine Besylate) 5 Mg Tab 2.5 Mg PO DAILY 30 Days Review of Systems Except as stated in HPI: all other systems reviewed are Neg Physical Exam Narrative GENERAL: 27yo F not in distress. SKIN: Focused skin assessment warm/dry. HEAD: Atraumatic. Normocephalic. EYES: Pupils equal and round. No scleral icterus. No injection or drainage. ENT: No nasal bleeding or discharge. Mucous membranes pink and moist. NECK: Trachea midline. No JVD. CARDIOVASCULAR: Regular rate and rhythm. No murmur appreciated. RESPIRATORY: No accessory muscle use. Clear to auscultation. Breath sounds equal bilaterally. GASTROINTESTINAL: Abdomen soft, non-tender, nondistended. MUSCULOSKELETAL: No obvious deformities. No clubbing. No cyanosis. No edema. NEUROLOGICAL: Awake and alert. No obvious cranial nerve deficits. Motor grossly within normal limits. Normal speech. PSYCHIATRIC: Appropriate mood and affect; insight and judgment normal. Data Data Last Documented VS Vital Signs Date Time Temp Pulse Resp B/P (MAP) Pulse Ox O2 Delivery O2 Flow Rate FiO2 05/26/17 08:00 96 19 100 Room Air 05/26/17 08:00 167/96 (119) 05/26/17 07:39 98.6 Orders Orders Complete Blood Count With Diff (05/26/17 08:10) Basic Metabolic Panel (Bmp) (05/26/17 08:10) Magnesium (Mg) (05/26/17 08:10) Bhcg Screen Qualitative (05/26/17 08:10) Labs Laboratory Tests Test 05/26/17 08:55 White Blood Count 4.2 TH/MM3 Red Blood Count 4.53 MIL/MM3 Hemoglobin 13.3 GM/DL Hematocrit 38.3 % Mean Corpuscular Volume 84.6 FL Mean Corpuscular Hemoglobin 29.4 PG Mean Corpuscular Hemoglobin Concent 34.8 % Red Cell Distribution Width 13.4 % Platelet Count 239 TH/MM3 Mean Platelet Volume 8.3 FL CBC Comment AUTO DIFF Differential Total Cells Counted 100 Neutrophils % (Manual) 68 % Lymphocytes % 23 % Monocytes % 7 % Eosinophils % 2 % Neutrophils # (Manual) 2.9 TH/MM3 Differential Comment FINAL DIFF MANUAL Platelet Estimate NORMAL Platelet Morphology Comment NORMAL Red Cell Morphology Comment NORMAL Blood Urea Nitrogen 10 MG/DL Creatinine 0.96 MG/DL Random Glucose 87 MG/DL Calcium Level 9.1 MG/DL Magnesium Level 2.1 MG/DL Sodium Level 142 MEQ/L Potassium Level 3.6 MEQ/L Chloride Level 111 MEQ/L Carbon Dioxide Level 21.6 MEQ/L Anion Gap 9 MEQ/L Estimat Glomerular Filtration Rate 85 ML/MIN Beta HCG, Qualitative LESS THAN 1 MIU/ML [facility] Medical Decision Making Medical Screen Exam Complete: Yes Emergency Medical Condition: Yes Differential Diagnosis Possible seizure vs. electrolyte abnormality vs. dehydration Narrative Course 27yo F here with possible seizure. Pt did not fall or hit her head. She is AAox3 and back to baseline. Labs reviewed, no leukocytosis. BMP unremarkable. negative. Magnesium normal. Pt has been observed in the ED with no episodes of seizure. Pt had negative work up of seizure before and will have pt follow up with Dr. Morse as an outpatient. Return precautions given. Diagnosis Primary Impression: Seizure Referrals: Vilma Morse MD call for appointment Had negative seizure work up in 09/2016 now with another episode of possible seizure. Please evaluate. Patient Instructions: General Instructions Departure Forms: Tests/Procedures Additional Instructions: Please follow up with Dr. Morse as an outpatient. Return to the ED if symptoms worsen. Med/Other Pt SpecificInfo: No Change to Meds Disposition: 01 DISCHARGE HOME Condition: Stable Nhi Goldman May 26, 2017 08:14
[2017-05-26 09:09] LABS: HEMATOCRIT 38.3 % (35.0-46.0); MEAN CELL VOLUME 84.6 FL (80.0-100.0); MEAN CORPUSCULAR HEMOGLOBIN 29.4 PG (27.0-34.0); MEAN CORPUSCULAR HGB CONC 34.8 % (32.0-36.0); PLATELET COUNT 239 TH/MM3 (150-450); RED BLOOD COUNT 4.53 MIL/MM3 (4.00-5.30); RED CELL DISTRIBUTION WIDTH 13.4 % (11.6-17.2); WHITE BLOOD COUNT 4.2 TH/MM3 (4.0-11.0)
[2017-05-26 09:11] LABS: HEMO FLAGS AUTO DIFF
[2017-05-26 09:35] LABS: ANION GAP 9 MEQ/L (5-15); BICARBONATE 21.6 MEQ/L (21.0-32.0); BLOOD UREA NITROGEN 10 MG/DL (7-18); CHLORIDE 111 MEQ/L (98-107); GLOMERULAR FILTRATION RATE 85 ML/MIN (>89); MAGNESIUM 2.1 MG/DL (1.5-2.5); POTASSIUM 3.6 MEQ/L (3.5-5.1); SODIUM (NA) 142 MEQ/L (136-145)
[2017-05-26 09:38] LABS: EOSINOPHILS 2 % (0-4); NEUTROPHIL # MANUAL DIFF 2.9 TH/MM3 (1.8-7.7); PLATELET ESTIMATE SMEAR NORMAL (NORMAL); PLATELET MORPHOLOGY NORMAL (NORMAL); POLYS (SEG NEUTROPHILS) 68 % (16-70); SCAN/DIFF FINAL DIFF MANUAL; WBC DIFF SAMPLE 100
[2017-05-26 09:41] LABS: BHCG SCREEN QUALITATIVE LESS THAN 1 MIU/ML (0-5)
[2017-05-26 10:45] VITALS: BP 170/92
== END 2017-05-26 10:47 | disposition home or self-care (01) ==
LOC: NEPC 07:34
DX: R56.9 Unspecified convulsions (principal); R51 Headache; I10 Essential (primary) hypertension; Z79.899 Other long term (current) drug therapy
CPT/HCPCS: 80048; 83735; 84703; 85007; 85027; 99283